=== PATIENT | female | born 1980 | race Caucasian/White ===

== ENCOUNTER 2022-02-08 14:42 | Emergency (ER) | payer SELFPAY ==
[~2022-02-08] VITALS: Ht 162.6 cm; Wt 80.0 kg
[2022-02-08] MEDS ORDERED: ONDANSETRON HCL 4MG/2ML INJ IV STA (15:05)
[2022-02-08] MEDS ORDERED: MORPHINE SULFATE 4 MG/ML CPJ (NOT FOR IM USE) IV STA (15:05)
[2022-02-08 15:35] LABS: BASOPHILS % 0.3 % (0.0-2.0); EOSINOPHILS % 0.8 % (0.0-5.0); HEMATOCRIT. 38.5 % (36.0-48.0); HEMOGLOBIN. 13.1 g/dL (12.0-16.0); LYMPHOCYTES % 20.6 % (20.0-50.0); MEAN CORPUSCULAR HEMOGLOBIN 28.2 pg (28.0-32.0); MEAN CORPUSCULAR VOLUME 82.5 fL (81.0-99.0); MEAN PLATELET VOLUME 7.2 fl (7.4-10.4); MONOCYTES % 5.9 % (2.0-8.0); NEUTROPHILS % 72.4 % (40.0-76.0); PLATELET 309 x1000/uL (130-400); RED BLOOD CELL COUNT 4.66 mill/uL (4.2-5.4); RED CELL DISTRIBUTION WIDTH 13.9 % (11.6-14.6)
[2022-02-08 15:36] LABS: CHLORIDE 107 mEq/L (98-107)
[2022-02-08 15:42] LABS: HCG SCREEN NEGATIVE
[2022-02-08 15:43] LABS: ETHANOL BLOOD < 10 mg/dL
[2022-02-08] MEDS ORDERED: IOHEXOL-350 100 ML BOTTLE ONE (17:01)
[2022-02-08] MEDS ORDERED: TAMSULOSIN HCL 0.4MG SR CAPSULE PO SCH (18:00)
[2022-02-08] MEDS ORDERED: CEPHALEXIN 250MG CAPSULE PO NR (18:00)
[2022-02-08] MEDS ORDERED: SODIUM CHLORIDE 0.9% 1,000 ML IV ONE (18:15)
[2022-02-08] MEDS ORDERED: KETOROLAC 15MG/ML VIAL IV ONE (18:15)
[2022-02-08] MEDS ORDERED: HYDR-4001 MT (19:23)
[2022-02-08] MEDS ORDERED: TAMS-11 MT (19:23)
[2022-02-08] MEDS ORDERED: IBUP-2029 MT (19:23)
[2022-02-08] MEDS ORDERED: CEPH500C2 MT (19:23)
[2022-02-08 20:22] VITALS: BP 109/67
== END 2022-02-08 20:25 | disposition home or self-care (01) ==
LOC: ER 14:42
DX: N20.1 Calculus of ureter (principal); I10 Essential (primary) hypertension; Z13.9 Encounter for screening, unspecified; Z98.890 Other specified postprocedural states
CPT/HCPCS: 36415; 71045; 71275; 74174; 80053; 80320; 83690; 83880; 84484; 84703; 85025; 93005; 96361; 96374; 96375; 99285; J1885; J2270; J2405; J7030; Q9967; G0480